=== PATIENT | female | born 2000 | race Caucasian/White ===

== ENCOUNTER 2022-05-20 04:13 | Inpatient (IN) | payer MEDICAID, SELFPAY ==
[2022-05-20 04:25] VITALS: BP 119/83; PULSE 93; RESP 18; TEMP 36.4; O2SAT 100
[2022-05-20 04:28] VITALS: BMI 34.7
[2022-05-20 06:00] VITALS: RESP 17
[2022-05-20] MEDS: BuSPIRONE 10 mg Tablet 5 MG PO (09:02)
[2022-05-20] MEDS: buPROPion SR (12 HR) 150 mg Tablet PO ×2 (09:03→17:58)
[2022-05-20 14:00] VITALS: BP 129/93; PULSE 72; RESP 16; TEMP 36.8; O2SAT 99
--- NOTE | 2022-05-20 15:18 | W.PM.NPUH&PS ---
Providers/Chief Complaint Admitting Physician: Rm Guillaume MD Chief Complaint: SI HPI NPU History of Present Illness Kandy Velez is a 22 year old female who presented to an outside hospital with report of a recent suicide attempt and ongoing depression and anxiety and suicidal thinking. She was transferred to [facility] and admitted to the neuropsychiatric unit for definitive treatment of those issues. She presents today reporting she is currently taking Buspar twice daily and Wellbutrin once daily and presents to the hospital as she [place] the [place] the intention of being hit. She has not been psychiatrically hospitalized but has received outpatient counseling services though her provider moved and she has not been able to find a new one and the medications she is currently taking are the first psychiatric ones she has ever been on. She denies tobacco, alcohol, marijuana or any other illicit drug use. She has never had drug and alcohol treatment, DUIs or drug and alcohol counseling. She first began counseling in October but reports she feels that the majority of her college career she would be isolated for days out of the week and struggled to get herself out of the low days. She endorses she could not get the energy or ability to leave in addition to feeling as if people don?t want to see her. She reports feeling as if she has always been the ?odd one out? but has never really had anyone she would consider a person her best friend. She has a close friend in middle school but distanced herself from her because of who she was. She enjoys being around people but endorses feeling since high school she felt like an odd person out and was worried about being thought of poorly. She has overheard people speaking about her friend poorly and became worried about what they would be saying about her. She has not really sought out online friendships as she tries to use it as little as possible due to past habits of how she was using it. The last few months have culminated in her suicidal ideation as she lacks an intrinsic sense of self worth. She endorses having been an above average student throughout school but began to struggle in out of school work in high school as she could not ?make herself do it?. She denies any previous suicide attempts. She reports one occurrence of self-injurious behavior. She reports she did not know until several years afterwards what had happened with her mother but recognized that something was wrong with her father for a period after her mother . She was surrounded by her jehovah's witness community during the time. She endorses having issues with relating to her male peers without feeling immature. She reports that she did not have male friendships throughout most of her life and dated one of her friends in high school for a period of time as she felt she needed to. She endorses that often the people she liked would wind up with other people in the group. Psychiatric History: As above. Substance Abuse History: As above. Family History: She reports mental health issues on her father?s side of the family, was not sure of her mother?s side as she due to cancer when she was younger, denies addiction issues on either side of the family and had a cousin on her father?s side of the family who committed suicide. Developmental History: She reports she was a breached baby and had to be delivered via and had to do infant physical therapy but learned to walk and talk and met her developmental milestones on time and denies any need for speech therapy, learning support, emotional support or special education classes. Psychosocial History: She reports her parents were together when she was born and remained together. She has a younger brother who is a product of the same union. Her father has 2 additional sons. She described her childhood as very fortunate beyond the tragedy of her mother and denies emotional, physical or sexual abuse. She denies CYS involvement. She reports her grandfather?s was her first she experienced as an adult and understood. She graduated high school and is currently in college. She endorses loving all different types of art. 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 She endorses being heterosexual with her longest relationship being a few months. She has never been , does not have children, has never been in the and endorses being nondenominational yazidi. Her longest employment history is 2 years. She currently lives in a shared living space with roommates. Legal History: Denied. 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 Her menstruation began around 13 years old and is regular without issues. Meds NPU Home Medications Medication Instructions Recorded Confirmed Last Taken Type bupropion HCl 150 mg tablet,12 hr 150 mg PO DAILY 05/20/22 05/20/22 Unknown History sustained-release (Wellbutrin SR) buspirone 5 mg tablet 5 mg PO BID 05/20/22 05/20/22 Unknown History Allergies Allergy/AdvReac Type Severity Reaction Status Date / Time No Known Allergies Allergy Verified 05/20/22 04:59 Mental Status Exam MSE Comments: This is an overweight white female in hospital scrubs with adequate grooming and eye contact. No abnormal movements except for mild psychomotor retardation. Cooperative with exam in no acute distress. Speech was normal rate and volume. Mood described as calm and stable but melancholy and sad, affect is congruent. Thought process, organized. Thought content: patient denies suicidal or homicidal ideation, no delusions reported or noted and denies any auditory or visual hallucinations. Attention and concentration are intact and memory appeared reliable but none were formally tested. She is alert and oriented three times. Insight and judgment are fair. Impulse control is fair. Vitals/I&O/Wt Last Vital Signs Temp 98.2 F 05/20/22 14:00 Pulse 72 05/20/22 14:00 Resp 16 05/20/22 14:00 BP 129/93 05/20/22 14:00 Pulse Ox 99 05/20/22 14:00 O2 Del Method 05/20/22 14:00 Weight last 48 hrs Weight 97.534 kg A&P Assessment and plan (1) Major depressive disorder, recurrent: Status: Acute (2) Generalized anxiety disorder: Status: Acute Plan This is a 22 year old white female with a history of depression and anxiety and genetic loading for mental health and lethality issues who presents with recent suicidal ideation having gone [place] the [place] with the intention to kill herself reporting she has been having continuing depression and anxiety and open to changes in her medications. 1. Continue current medications 2. Encourage individual, group and milieu therapy 3. Continue q-15 minute check for safety Involuntary Hold Information 96 Hour Hold: 96 Hour Involuntary Admission: No Attestations NPU Medical Necessity Statement*: Inpatient hospitalization is medically necessary and the clinically appropriate intervention at this time. We will monitor medications and make changes as indicated. Patient will be in the hospital for over two midnights. Likely length of stay is three to five days. Coding Level of Care Code Acute Elevator Serviceman for Josefina Adam Diagnoses Major depressive disorder, recurrent F33.9 Generalized anxiety disorder F41.1
[2022-05-20] MEDS: BuSPIRONE 10 mg Tablet PO (17:58)
--- NOTE | 2022-05-20 18:05 | PC.NURSE ---
PROVIDER GAVE VERBAL ORDER TO INCREASE DAILY DOSE OF WELLBUTRIN TO 300MG DAILY AND BUSPAR 10MG BID. PROVIDER GAVE ONE TIME ORDER FOR WELLBUTRIN 150MG TO BE GIVEN AT THAT TIME AND FOR THE INCREASE OF BUSPAR TO START THIS EVENING. BOTH WERE GIVEN TO PATIENT AND MEDICATION EDUCATION WAS GIVEN. PT VERBALIZED UNDERSTANDING.
[2022-05-20 19:56] VITALS: BP 112/70; PULSE 107; RESP 18; TEMP 36.7; O2SAT 97
[2022-05-20] MEDS: trazodone 50 mg Tablet PO ×2 (21:37→23:31)
--- NOTE | 2022-05-21 00:59 | PC.NURSE ---
Patient received Trazodone x2 this evening and now is getting a Vistaril 50 mg.
[2022-05-21] MEDS: hyDROXYzine 25 mg Capsule 50 MG PO (01:00)
[2022-05-21 06:00] VITALS: RESP 16
[2022-05-21] MEDS: buPROPion XL (24 HR) 300 mg Tablet PO (08:46)
[2022-05-21] MEDS: BuSPIRONE 10 mg Tablet PO ×2 (08:46→17:57)
--- NOTE | 2022-05-21 09:30 | PC.NURSE ---
IN BED RESTING, AROUSES TO VOICE. DENIES PAIN. DENIES SI/HI AND AVH AT THIS TIME. PT DID REPORT THAT SHE DID NOT SLEEP WELL LAST NIGHT AFTER TAKING TRAZODONE TIMES TWO AND [place]IST[place]. WILL REPORT TO DR. STARKEY IN AM MEETING. ALL QUESTIONS ANSWERED AND SUPPORT VOICED.
[2022-05-21 14:00] VITALS: BP 119/86; PULSE 90; RESP 18; TEMP 36.6; O2SAT 98
[2022-05-21] MEDS: acetaminophen 325 mg Tablet 650 MG PO (14:01)
--- NOTE | 2022-05-21 19:19 | P.NPUPN_ITS ---
Subjective NPU Subjective: Patient presented today reporting that she is doing better today regulating her thoughts. She reports that she did struggle some with sleep last night with the late administration of the addition of Wellbutrin XL. She reports that today she is feeling a little better though she did have a headache at 1 point and she was trying to resolve that issue but otherwise reports that she feels like things are likely moving in the right direction. She has talked to some people back to school and they have been supportive. She knows she needs to focus on getting well so she can return to full function. Mental Status Exam MSE Comments: This is an overweight white female in hospital scrubs with adequate grooming and eye contact. No abnormal movements except for mild psychomotor retardation. Cooperative with exam in no acute distress. Speech was normal rate and volume. Mood described as a little better, affect is congruent. Thought process, organized. Thought content: patient denies suicidal or homicidal ideation, no delusions reported or noted and denies any auditory or visual hallucinations. Attention and concentration are intact and memory appeared reliable but none were formally tested. She is alert and oriented three times. Insight and judgment are fair. Impulse control is fair. Vitals/I&O/Wt Last Vital Signs Temp 98.6 F 05/21/22 22:00 Pulse 80 05/21/22 22:00 Resp 16 05/21/22 22:00 BP 109/73 05/21/22 22:00 Pulse Ox 99 05/21/22 22:00 O2 Del Method 05/21/22 22:00 Weight last 48 hrs Weight 97.534 kg A&P Assessment and plan (1) Major depressive disorder, recurrent: Status: Acute (2) Generalized anxiety disorder: Status: Acute Plan This is a 22 year old white female with a history of depression and anxiety and genetic loading for mental health and lethality issues who presents with recent suicidal ideation having gone to the [employer] tracks with the intention to kill herself reporting she has been having continuing depression and anxiety and open to changes in her medications. 1. Continue current medications except increase Wellbutrin XL to 300 mg p.o. every morning BuSpar to 10 mg p.o. twice daily. 2. Encourage individual, group and milieu therapy 3. Continue q-15 minute check for safety Involuntary Hold Information 96 Hour Hold: 96 Hour Involuntary Admission: No Attestations NPU Medical Necessity Statement*: Inpatient hospitalization is medically necessary and the clinically appropriate intervention at this time. We will monitor medications and make changes as indicated. Likely length of stay is 2-4 days. Coding Level of Care Code Acute Radioisotope Technologist for g Fwd Diagnoses Major depressive disorder, recurrent F33.9 Generalized anxiety disorder F41.1
[2022-05-21] MEDS: trazodone 50 mg Tablet PO (21:22)
[2022-05-21 22:00] VITALS: BP 109/73; PULSE 80; RESP 16; TEMP 37; O2SAT 99
[2022-05-22 06:00] VITALS: BP 95/63; PULSE 90; RESP 16; TEMP 36.7; O2SAT 96
[2022-05-22] MEDS: buPROPion XL (24 HR) 300 mg Tablet PO (09:22)
[2022-05-22] MEDS: BuSPIRONE 10 mg Tablet PO ×2 (09:22→21:49)
--- NOTE | 2022-05-22 11:12 | PC.NURSE ---
NEW ORDERS DR. STARKEY NOTIFIED OF NO BM FOR 3 DAYS, NEW ORDERS TO GIVE MOM 30 MLS DAILY PRN. PT ALSO C/O ALLERGIES AND STATES SHE TAKES ZYRTEC [address] STARKEY GAVE ORDERS TO START ZYRTEC. ORDERS PLACED IN [facility]. PT EDUCATED ON NEW ORDERS AND VERBALIZED UNDERSTANDING.
[2022-05-22] MEDS: cetirizine 10 mg Tablet PO (11:58)
[2022-05-22] MEDS: magnesium hydroxide 30 mL UDC PO (11:59)
--- NOTE | 2022-05-22 11:59 | PC.NURSE ---
MILK OF MAGNESIA 30 ML GIVEN PO PER PT C/O STATED CONSTIPATION
[2022-05-22 14:00] VITALS: BP 127/64; PULSE 82; RESP 18; TEMP 36.4; O2SAT 97
--- NOTE | 2022-05-22 16:34 | W.PM.NPUPNS ---
Subjective NPU Subjective: Patient presents today reporting that she was a bit frustrated yesterday in relation to an encounter she had with the nurses. A fairly lengthy discussion about how it represented a microcosm of her general approaches in life. We discussed the importance of her learning to be assertive and identifying that her being assertive and not aggressive, is not unkind and that she needs to be able to get her needs met. We also talked about her giving behavior but her refusal to accept kindness or giving from others. She reports the medication is working okay not sure if the BuSpar increase is working, so we will change tomorrow if still not helpful Mental Status Exam MSE Comments: This is an overweight white female in hospital scrubs with adequate grooming and eye contact. No abnormal movements except for mild psychomotor retardation. Cooperative with exam in no acute distress. Speech was normal rate and volume. Mood described as yesterday was not a great day, affect is congruent. Thought process, organized. Thought content: patient denies suicidal or homicidal ideation, no delusions reported or noted and denies any auditory or visual hallucinations. Attention and concentration are intact and memory appeared reliable but none were formally tested. She is alert and oriented three times. Insight and judgment are fair. Impulse control is fair. Vitals/I&O/Wt Last Vital Signs Temp 97.6 F 05/22/22 14:00 Pulse 82 05/22/22 14:00 Resp 18 05/22/22 14:00 BP 127/64 05/22/22 14:00 Pulse Ox 97 05/22/22 14:00 O2 Del Method 05/22/22 06:00 A&P Assessment and plan (1) Major depressive disorder, recurrent: Status: Acute (2) Generalized anxiety disorder: Status: Acute Plan This is a 22 year old white female with a history of depression and anxiety and genetic loading for mental health and lethality issues who presents with recent suicidal ideation having gone to the [employer] tracks with the intention to kill herself reporting she has been having continuing depression and anxiety and open to changes in her medications. 1. Continue current medications except increase Wellbutrin XL to 300 mg p.o. every morning BuSpar to 10 mg p.o. twice daily. We will monitor and possibly change BuSpar to propranolol if improvement not perceived. 2. Encourage individual, group and milieu therapy 3. Continue q-15 minute check for safety Involuntary Hold Information 96 Hour Hold: 96 Hour Involuntary Admission: No Attestations NPU Medical Necessity Statement*: Inpatient hospitalization is medically necessary and the clinically appropriate intervention at this time. We will monitor medications and make changes as indicated. Likely length of stay is 1-3 days. Coding Level of Care Code Acute Compliance Lead for Chg Fwd Diagnoses Major depressive disorder, recurrent F33.9 Generalized anxiety disorder F41.1
[2022-05-22 20:06] VITALS: BP 101/65; PULSE 89; RESP 16; TEMP 36.7; O2SAT 100
[2022-05-22] MEDS: trazodone 50 mg Tablet PO (21:09)
[2022-05-23 06:00] VITALS: BP 104/71; PULSE 71; RESP 18; TEMP 36.6; O2SAT 97
--- NOTE | 2022-05-23 08:57 | P.NPUPN_ITS ---
Subjective NPU Subjective: Patient presents today reporting that overall she had a positive day. She reports the medications seem to be going fine and she had some good conversation with the waxing machine operator as well as her home parallel computing software engineer. This was really helpful for her and we discussed the risk benefits and alternatives of leaving in the next 48 hours and she understood and agreed to proceed as is documented in this note. Mental Status Exam MSE Comments: This is an overweight white female in hospital scrubs with adequate grooming and eye contact. No abnormal movements except for mild psychomotor retardation. Cooperative with exam in no acute distress. Speech was normal rate and volume. Mood described as better, affect is congruent. Thought process, organized. Thought content: patient denies suicidal or homicidal ideation, no delusions reported or noted and denies any auditory or visual hallucinations. Attention and concentration are intact and memory appeared reliable but none were formally tested. She is alert and oriented three times. Insight and judgment are fair. Impulse control is fair. Vitals/I&O/Wt Last Vital Signs Temp 98.1 F 05/22/22 20:06 Pulse 89 05/22/22 20:06 Resp 16 05/22/22 20:06 BP 101/65 05/22/22 20:06 Pulse Ox 100 05/22/22 20:06 O2 Del Method 05/22/22 20:06 A&P Assessment and plan (1) Major depressive disorder, recurrent: Status: Acute (2) Generalized anxiety disorder: Status: Acute Plan This is a 22 year old white female with a history of depression and anxiety and genetic loading for mental health and lethality issues who presents with recent suicidal ideation having gone to the [employer] [place] [employer] tracks with the intention to kill herself reporting she has been having continuing depression and anxiety and open to changes in her medications. 1. Continue current medications except increase Wellbutrin XL to 300 mg p.o. every morning BuSpar to 10 mg p.o. twice daily. 2. Encourage individual, group and milieu therapy 3. Continue q-15 minute check for safety. 4. Consider discharge in the morning. Involuntary Hold Information 96 Hour Hold: 96 Hour Involuntary Admission: No Attestations NPU Medical Necessity Statement*: Inpatient hospitalization is medically necessary and the clinically appropriate intervention at this time. We will monitor medications and make changes as indicated. Likely length of stay is 1-2 days. Coding Level of Care Code Acute Dropper Tank Storage for [facility] Fwd Diagnoses Major depressive disorder, recurrent F33.9 Generalized anxiety disorder F41.1
[2022-05-23] MEDS: cetirizine 10 mg Tablet PO (09:53)
[2022-05-23] MEDS: BuSPIRONE 10 mg Tablet PO ×2 (09:53→20:54)
[2022-05-23] MEDS: buPROPion XL (24 HR) 300 mg Tablet PO (09:54)
--- NOTE | 2022-05-23 10:52 | PC.NURSE ---
Patient sitting on edge of bed calmly. States she slept well last night and denies any pain. Denies any auditory or visual hallucinations. Denies suicidal or homicidal ideations. States she does feel anxious and that it started yesterday when she was on the phone with her dad and he was asking a lot of specific questions about when and what date she was coming home. Stated it has gone down a bit and said if she had to rate her anxiety on a 1-10 scale this morning she would give it a 4. Said she didn't require any PRN meds and would notify us if her anxiety didn't get better or if it worsened. Still hasn't had a bowel movement and is willing to try milk of magnesia. Denies any other concerns at this time.
[2022-05-23 14:00] VITALS: BP 110/73; PULSE 78; RESP 15; TEMP 36.9; O2SAT 99
[2022-05-23] MEDS: magnesium hydroxide 30 mL UDC PO (16:09)
--- NOTE | 2022-05-23 16:09 | PC.NURSE ---
PT HAS NOT HAD A BM IN 4 DAYS. PT WAS GIVEN MILK OF MAG AND APPLE JUICE. PT WILL NOTIFY STAFF WHEN BM OCCURS OR IF IT DOES NOT.
[2022-05-23 20:23] VITALS: BP 119/77; PULSE 87; RESP 16; TEMP 36.7; O2SAT 99
[2022-05-23] MEDS: trazodone 50 mg Tablet PO (21:24)
--- NOTE | 2022-05-24 05:39 | P.NPUDS_ITS ---
Diagnoses at Discharge Discharge Diagnosis (1) Major depressive disorder, recurrent: Status: Acute (2) Generalized anxiety disorder: Status: Acute Reason for Visit Reason for Visit: SI Hospital Course Hospital Course During the hospitalization, patient had routine laboratory studies which were within normal limits except for few outliers.? Additionally there was a general medical evaluation which was also within normal limits and revealed no new acute processes. Discharge Summary: At the time of discharge, lethality was denied and any psychosis and/or mood disturbance was resolved.? Mood and anxiety were well managed.? Patient endorsed a plan to avoid all drugs of abuse and follow-up with the aftercare recommendations of the treatment team.? Patient was evaluated and deemed to be absent credible lethality, and had achieved the maximum benefit from an inpatient hospitalization, so was discharged. Involuntary Hold Information 96 Hour Hold: 96 Hour Involuntary Admission: No Discharge Data Vitals: Last Vital Signs Temp 98.0 F 05/23/22 20:23 Pulse 87 05/23/22 20:23 Resp 16 05/23/22 20:23 BP 119/77 05/23/22 20:23 Pulse Ox 99 05/23/22 20:23 O2 Del Method 05/23/22 20:23 Discharge Plan Discharge Patient Disposition: Home Condition: Stable Prescriptions: New bupropion HCl 300 mg Tablet Extended Release 24 Hr 300 mg PO DAILY 30 Days Qty: 30 1RF Continued buspirone 5 mg Tablet 5 mg PO BID 30 Days Qty: 60 1RF Discontinued bupropion HCl [Wellbutrin SR] 150 mg Tablet Sustained-Release 12 Hr 150 mg PO DAILY Discharge Orders: Discharge Order (Routine); Ordered 05/25/22 Ordered By: Hermann Blanco Referrals: [facility] [Other] [facility] [Other] - 1-3 days Discharge Diet: Advance as tolerated Discharge Activity: Resume usual activity Patient Instructions: Generalized Anxiety Disorder, Depression, Bupropion (By mouth) (Zyban, Wellbutrin XL, Wellbutrin SR, Wellbutrin), Buspirone (By mouth), Mood Disorders (DC), Opioid Safety Discharge Attestations NPU Time Spent in Discharge Care*: less than 30 min Specific Discharge Activities: Specific discharge activities: educating patient, discussing with cyanide case hardener/social workers/dc planners, documenting/other paperwork and evaluating patient/reviewing data Coding Level of Care Code Acute [facility] FW PALMER note Diagnoses Major depressive disorder, recurrent F33.9 Generalized anxiety disorder F41.1
[2022-05-24 06:00] VITALS: BP 97/65; PULSE 74; RESP 16; TEMP 36.6; O2SAT 95
--- NOTE | 2022-05-24 07:03 | W.PM.NPUPNS ---
Subjective NPU Subjective: Patient presents today reporting that she is doing better. She endorsed some anxiety about going home but reports that she did reach out to her support system and it was their consensus that we wanted to make sure she had proper referrals at discharge. We discussed the fact that the treatment team would be back in the morning and that those arrangements would be confirmed if you could be discharged after that which made her quite happy. Mental Status Exam MSE Comments: This is an overweight white female in hospital scrubs with adequate grooming and eye contact. No abnormal movements except for mild psychomotor retardation. Cooperative with exam in no acute distress. Speech was normal rate and volume. Mood described as pretty good, affect is congruent. Thought process, organized. Thought content: patient denies suicidal or homicidal ideation, no delusions reported or noted and denies any auditory or visual hallucinations. Attention and concentration are intact and memory appeared reliable but none were formally tested. She is alert and oriented three times. Insight and judgment are fair. Impulse control is fair. Vitals/I&O/Wt Last Vital Signs Temp 98.7 F 05/24/22 20:57 Pulse 102 H 05/24/22 20:57 Resp 20 H 05/24/22 20:57 BP 102/68 05/24/22 20:57 Pulse Ox 98 05/24/22 20:57 O2 Del Method 05/24/22 20:57 Weight last 48 hrs Weight 101.786 kg A&P Assessment and plan (1) Major depressive disorder, recurrent: Status: Acute (2) Generalized anxiety disorder: Status: Acute Plan This is a 22 year old white female with a history of depression and anxiety and genetic loading for mental health and lethality issues who presents with recent suicidal ideation having gone to the [employer] with the intention to kill herself reporting she has been having continuing depression and anxiety and open to changes in her medications. 1. Continue current medications except increase Wellbutrin XL to 300 mg p.o. every morning BuSpar to 10 mg p.o. twice daily. 2. Encourage individual, group and milieu therapy 3. Continue q-15 minute check for safety. 4. Consider discharge in the morning. Involuntary Hold Information 96 Hour Hold: 96 Hour Involuntary Admission: No Attestations NPU Medical Necessity Statement*: Inpatient hospitalization is medically necessary and the clinically appropriate intervention at this time. We will monitor medications and make changes as indicated. Discharge in the morning. Coding Level of Care Code Acute Trains Service Conductor for Chg Fwd Diagnoses Major depressive disorder, recurrent F33.9 Generalized anxiety disorder F41.1
[2022-05-24] MEDS: cetirizine 10 mg Tablet PO (09:42)
[2022-05-24] MEDS: BuSPIRONE 10 mg Tablet PO ×2 (09:42→19:46)
[2022-05-24] MEDS: buPROPion XL (24 HR) 300 mg Tablet PO (09:42)
[2022-05-24 14:00] VITALS: BP 107/77; PULSE 84; RESP 16; TEMP 36.8; O2SAT 98
[2022-05-24] MEDS: trazodone 50 mg Tablet PO ×2 (19:46→23:10)
[2022-05-24 20:57] VITALS: BP 102/68; PULSE 102; RESP 20; TEMP 37.1; O2SAT 98
[2022-05-25 06:00] VITALS: BP 95/62; PULSE 76; RESP 18; TEMP 36.3; O2SAT 99
[2022-05-25] MEDS: BuSPIRONE 10 mg Tablet PO (08:35)
[2022-05-25] MEDS: buPROPion XL (24 HR) 300 mg Tablet PO (08:35)
[2022-05-25] MEDS: cetirizine 10 mg Tablet PO (08:35)
--- NOTE | 2022-05-25 12:18 | P.NPUDS_ITS ---
Diagnoses at Discharge Discharge Diagnosis (1) Major depressive disorder, recurrent: Status: Acute (2) Generalized anxiety disorder: Status: Acute Reason for Visit Reason for Visit: SI Brief History: Kandy Velez is a 22 year old female who presented to an outside hospital with report of a recent suicide attempt and ongoing depression and anxiety and suicidal thinking.? She was transferred to [facility] and admitted to the neuropsychiatric unit for definitive treatment of those issues. She presents today reporting she is currently taking Buspar twice daily and Wellbutrin once daily and presents to the hospital as she went to the [employer] with the intention of being hit. She has not been psychiatrically hospitalized but has received outpatient counseling services though her provider moved and she has not been able to find a new one and the medications she is currently taking are the first psychiatric ones she has ever been on. She denies tobacco, alcohol, marijuana or any other illicit drug use. She has never had drug and alcohol treatment, DUIs or drug and alcohol counseling. She first began counseling in October but reports she feels that the majority of her college career she would be isolated for days out of the week and struggled to get herself out of the low days. She endorses she could not get the energy or ability to leave in addition to feeling as if people don?t want to see her. She reports feeling as if she has always been the ?odd one out? but has never really had anyone she would consider a person her best friend. She has a close friend in middle school but distanced herself from her because of who she was. She enjoys being around people but endorses feeling since high school she felt like an odd person out and was worried about being thought of poorly. She has overheard people speaking about her friend poorly and became worried about what they would be saying about her. She has not really sought out online friendships as she tries to use it as little as possible due to past habits of how she was using it. The last few months have culminated in her suicidal ideation as she lacks an intrinsic sense of self worth. She endorses having been an above average student throughout school but began to struggle in out of school work in high school as she could not ?make herself do it?. She denies any previous suicide attempts. She reports one occurrence of self-injurious behavior. She reports she did not know until several years afterwards what had happened with her mother but recognized that something was wrong with her father for a period after her mother . She was surrounded by her presybeterian community during the time. She endorses having issues with relating to her male peers without feeling immature. She reports that she did not have male friendships throughout most of her life and dated one of her friends in high school for a period of time as she felt she needed to. She endorses that often the people she liked would wind up with other people in the group. Psychiatric History: As above. Substance Abuse History: As above. Family History: She? reports mental health issues on her father?s side of the family, was not sure of her mother?s side as she due to cancer when she was younger, denies addiction issues on either side of the family and had a cousin on her father?s side of the family who committed suicide. Developmental History: She reports she was a breached baby and had to be delivered via and had to do physical therapy but learned to walk and talk and met her developmental milestones on time and denies any need for speech therapy, learning support, emotional support or special education classes. Psychosocial History: She reports her parents were together when she was born and remained together. She has a younger brother who is a product of the same union. Her father has 2 additional sons. She described her childhood as very fortunate beyond the tragedy of her mother and denies emotional, physical or sexual abuse. She denies CYS involvement. She reports her grandfather?s was her first she experienced as an adult and understood. She graduated high school and is currently in college. She endorses loving all different types of art. 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 She endorses being heterosexual with her longest relationship being a few months. She has never been , does not have children, has never been in the and endorses being rastafari shinto. Her longest employment history is 2 years. She currently lives in a shared living space with roommates. Legal History: Denied. 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 Her menstruation began around 13 years old and is regular without issues. Hospital Course Hospital Course During the hospitalization, patient had routine laboratory studies which were within normal limits except for few outliers.? Additionally there was a general medical evaluation which was also within normal limits and revealed no new acute processes. Discharge Summary: At the time of discharge, lethality was denied and any psychosis and/or mood disturbance was resolved.? Mood and anxiety were well managed.? Patient endorsed a plan to avoid all drugs of abuse and follow-up with the aftercare recommendations of the treatment team.? Patient was evaluated and deemed to be absent credible lethality, and had achieved the maximum benefit from an inpatient hospitalization, so was discharged. Involuntary Hold Information 96 Hour Hold: 96 Hour Involuntary Admission: No Mental Status Exam MSE Comments: This is an overweight white female in hospital scrubs with adequate grooming and eye contact. No abnormal movements noted. She was Cooperative with exam in no acute distress. Speech was normal rate and volume. Mood described as pretty good, affect is congruent. Thought process, organized. Thought content: patient denies suicidal or homicidal ideation, no delusions reported or noted and denies any auditory or visual hallucinations. Attention and concentration are intact and memory appeared reliable but none were formally tested. She is alert and oriented three times. Insight and judgment are fair. Impulse control is fair. Discharge Data Vitals: Last Vital Signs Temp 97.3 F L 05/25/22 06:00 Pulse 76 05/25/22 06:00 Resp 18 05/25/22 06:00 BP 95/62 05/25/22 06:00 Pulse Ox 99 05/25/22 06:00 O2 Del Method 05/25/22 06:00 Discharge Plan Discharge Patient Disposition: Home Condition: Stable Prescriptions: New bupropion HCl 300 mg Tablet Extended Release 24 Hr 300 mg PO DAILY 30 Days Qty: 30 1RF Continued buspirone 5 mg Tablet 5 mg PO BID 30 Days Qty: 60 1RF Discontinued bupropion HCl [Wellbutrin SR] 150 mg Tablet Sustained-Release 12 Hr 150 mg PO DAILY Discharge Orders: Discharge Order (Routine); Ordered 05/25/22 Ordered By: Hremann Blanco Referrals: [facility] [Other] [facility] [Other] - 1-3 days Discharge Diet: Advance as tolerated Discharge Activity: Resume usual activity Patient Instructions: Generalized Anxiety Disorder, Depression, Bupropion (By mouth) (Zyban, Wellbutrin XL, Wellbutrin SR, Wellbutrin), Buspirone (By mouth), Mood Disorders (DC), Opioid Safety Discharge Attestations NPU Time Spent in Discharge Care*: less than 30 min Specific Discharge Activities: Specific discharge activities: educating patient, educating and/or supporting family/caregiver, discussing with correctional case manager/social workers/dc planners, documenting/other paperwork and evaluating patient/reviewing data Coding Level of Care Code Established Pt Acute Chg FW DC note Patient Type Established History Problem Focused Exam Problem Focused Medical Decision Making Straight Forward Diagnoses Major depressive disorder, recurrent F33.9 Generalized anxiety disorder F41.1
[2022-05-25 12:33] VITALS: BP 95/62; PULSE 76; RESP 18; TEMP 36.3; O2SAT 99
== END 2022-05-25 16:00 | disposition home or self-care (01) | DRG 885 ==
PROVIDERS: Admitting Provider Psychiatry & Neurology Psychiatry; Visit Provider Psychiatry & Neurology Psychiatry
DX: F33.9 Major depressive disorder, recurrent, unspecified (principal); R45.851 Suicidal ideations; F41.1 Generalized anxiety disorder; G47.9 Sleep disorder, unspecified; Z91.52 Personal history of nonsuicidal self-harm; Z81.8 Family history of other mental and behavioral disorders; Z86.69 Personal history of other diseases of the nervous system and sense organs
CPT/HCPCS: 97150; 97165